=== PATIENT | female | born 1990 | race Two or more races ===

== ENCOUNTER 2021-11-19 12:14 | Emergency (ER) | payer OTHER ==
--- NOTE | 2021-11-19 12:33 | NUR ---
CALLED BY ADMITTING ON HER PHONE AND BY MYSELF IN WR AND OUTSIDE FOR TRIAGE,NO ANSWER
--- NOTE | 2021-11-19 13:07 | NUR ---
Multiple calls. NO response- [facility]
== END 2021-11-19 13:07 | disposition home or self-care (01) ==
LOC: ER 12:14
DX: Z53.21 Procedure and treatment not carried out due to patient leaving prior to being seen by health care provider (principal)

== ENCOUNTER 2021-11-19 14:14 | Emergency (ER) | payer OTHER ==
[~2021-11-19] VITALS: Ht 180.3 cm; Wt 100.7 kg
--- NOTE | 2021-11-19 14:30 | NUR ---
CALLED TO TRIAGE,NO ANSWER
[2021-11-19 15:05] VITALS: BP 143/85
--- NOTE | 2021-11-19 15:05 | NUR ---
UPPER BACK/CHEST WALL PAIN AND CHEST CONGESTION,COVID-19 POSITIVE SINCE 5 DAYS AGO
--- NOTE | 2021-11-19 16:07 | NUR ---
Patient discharged to home in stable condition. Written and verbal after care instructions given. Patient verbalizes understanding of instruction.
== END 2021-11-19 16:07 | disposition home or self-care (01) ==
LOC: ER 14:18
DX: U07.1 COVID-19 (principal); F17.200 Nicotine dependence, unspecified, uncomplicated; Z60.2 Problems related to living alone
CPT/HCPCS: 71045-TC

== ENCOUNTER 2022-03-11 15:10 | Emergency (ER) | payer OTHER ==
[~2022-03-11] VITALS: Ht 167.6 cm; Wt 99.8 kg
--- NOTE | 2022-03-11 15:24 | NUR ---
BIBS C/O NUMBNESS X2DAY OF HER LEFT ARM WEAKNESS THAT HAS GOTTEN WORSE. PT STATED THAT SHE HAD GOTTEN HER NEXPLANON REMOVED AND STARTED TO HAVE WEAKNESS. VITALS ARE WITHIN NORMAL LIMITS. AWAITING MD LEMOS.
--- NOTE | 2022-03-11 17:17 | NUR ---
LABS COLLECTED AND SENT
[2022-03-11 18:02] LABS: BASOPHILS # (AUTO) 0.1 K/uL (0.0-0.2); BASOPHILS % (AUTO) 1.1 % (0.0-2.0); EOSINOPHILS % (AUTO) 1.8 % (0.0-6.0); HEMATOCRIT 44 % (33-45); HEMOGLOBIN 14.2 g/dL (11.5-14.8); LYMPHOCYTES # (AUTO) 2.9 K/uL (0.8-4.8); LYMPHOCYTES % (AUTO) 36.8 % (20.0-44.0); MEAN CORPUSCULAR HGB CONC 32 g/dl (31.0-36.0); MEAN CORPUSCULAR VOLUME 87 fL (82-100); MONOCYTES # (AUTO) 0.4 K/uL (0.1-1.30); MONOCYTES % (AUTO) 5.7 % (2.0-12.0); NEUTROPHILS # (AUTO) 4.3 K/uL (1.8-8.9); NEUTROPHILS % (AUTO) 54.6 % (43.0-81.0); PLATELET COUNT (AUTO) 251 K/uL (150-450); RED BLOOD CELL COUNT(AUTO) 5.01 MIL/uL (4.0-5.2); WHITE BLOOD COUNT (AUTO) 7.9 K/uL (4.3-11.0)
[2022-03-11 18:59] VITALS: BP 129/84
--- NOTE | 2022-03-11 18:59 | NUR ---
PT SIGNED AGAINST MEDICAL ADVICE FORM, VERBALIZED UNDERSTANDING OF THE RISK. PT LEFT FACILITY WALKING.
[2022-03-11 20:40] LABS: ALBUMIN 3.8 g/dL (3.4-5.0); BILIRUBIN,DIRECT 0.1 mg/dL (0.0-0.2); BILIRUBIN,TOTAL 0.2 mg/dL (0.2-1.0); CALCIUM, SERUM 8.7 mg/dL (8.5-10.1); CREATININE 0.8 mg/dL (0.6-1.3); POTASSIUM 3.7 mmol/L (3.5-5.1); TOTAL PROTEIN, SERUM 7.2 g/dL (6.4-8.2)
== END 2022-03-11 19:00 | disposition left against medical advice (07) ==
LOC: ER 15:13
DX: R53.1 Weakness (principal); F17.200 Nicotine dependence, unspecified, uncomplicated; Z60.2 Problems related to living alone
CPT/HCPCS: 36415; 80048-TC; 80076-TC; 85025-TC

== ENCOUNTER 2022-05-11 09:29 | Emergency (ER) | payer OTHER ==
[~2022-05-11] VITALS: Ht 167.6 cm; Wt 99.8 kg
--- NOTE | 2022-05-11 10:27 | NUR ---
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
--- NOTE | 2022-05-11 10:29 | NUR ---
URINE SAMPLE COLLECTED AND SENT TO LAB
[2022-05-11 10:36] LABS: BASOPHILS # (AUTO) 0.1 K/uL (0.0-0.2); BASOPHILS % (AUTO) 0.9 % (0.0-2.0); EOSINOPHILS % (AUTO) 1.9 % (0.0-6.0); HEMATOCRIT 42 % (33-45); HEMOGLOBIN 13.9 g/dL (11.5-14.8); LYMPHOCYTES % (AUTO) 32.9 % (20.0-44.0); MEAN CORPUSCULAR HGB CONC 33 g/dl (31.0-36.0); MEAN CORPUSCULAR VOLUME 87 fL (82-100); MONOCYTES # (AUTO) 0.4 K/uL (0.1-1.30); MONOCYTES % (AUTO) 6.8 % (2.0-12.0); NEUTROPHILS # (AUTO) 3.5 K/uL (1.8-8.9); NEUTROPHILS % (AUTO) 57.5 % (43.0-81.0); PLATELET COUNT (AUTO) 234 K/uL (150-450); RED BLOOD CELL COUNT(AUTO) 4.81 MIL/uL (4.0-5.2); WHITE BLOOD COUNT (AUTO) 6.1 K/uL (4.3-11.0)
[2022-05-11 10:39] LABS: BILIRUBIN,URINE NEGATIVE (NEGATIVE); COLOR,URINE YELLOW (YELLOW); LEUKOCYTE ESTERASE ,URINE TRACE (NEGATIVE); NITRITE, URINE NEGATIVE (NEGATIVE); PROTEIN,URINE NEGATIVE (NEGATIVE); UGLUCOSE NEGATIVE (NEGATIVE); UROBILINOGEN,URINE 0.2 EU/dL (0.2)
[2022-05-11 10:46] LABS: CALCIUM, SERUM 8.2 mg/dL (8.5-10.1); CREATININE 0.7 mg/dL (0.6-1.3); POTASSIUM 3.8 mmol/L (3.5-5.1)
[2022-05-11 10:59] LABS: BACTERIA,URINE Few /HPF (None Seen); RBC,URINE 0-2 /HPF (0-2); SQUAMOUS EPITHELIAL CELL,UR Many /HPF (None Seen); WBC,URINE 0-2 /HPF (0-3)
[2022-05-11 11:01] LABS: ALBUMIN 3.4 g/dL (3.4-5.0); BILIRUBIN,DIRECT 0.1 mg/dL (0.0-0.2); BILIRUBIN,TOTAL 0.4 mg/dL (0.2-1.0); TOTAL PROTEIN, SERUM 6.7 g/dL (6.4-8.2)
--- NOTE | 2022-05-11 12:03 | NUR ---
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
--- NOTE | 2022-05-11 12:09 | NUR ---
TAKEN TO CT
[2022-05-11] MEDS ORDERED: IBUPROFEN 600 MG TABLET ONE (13:33)
[2022-05-11] MEDS ORDERED: IBUP-1955 PO (13:35)
[2022-05-11] MEDS: IBUPROFEN 600 MG TABLET PO ONE (13:38)
--- NOTE | 2022-05-11 13:40 | NUR ---
Patient discharged to home in stable condition. Written and verbal after care instructions given. Patient verbalizes understanding of instruction.
[2022-05-11 13:44] VITALS: BP 130/78
== END 2022-05-11 13:44 | disposition home or self-care (01) ==
LOC: ER 09:35
DX: R10.33 Periumbilical pain (principal); D25.9 Leiomyoma of uterus, unspecified; F17.200 Nicotine dependence, unspecified, uncomplicated; Z60.2 Problems related to living alone
CPT/HCPCS: 36415; 80048-TC; 80076-TC; 81001; 83690-TC; 84703-TC; 85025-TC